=== PATIENT | male | born 1975 | race Caucasian/White ===

== ENCOUNTER 2017-04-15 10:00 | Inpatient (IN) ==
[2017-04-15] MEDS ORDERED: Ipratropium/Albuterol Neb 3 ML IH ONE (10:26)
--- NOTE | 2017-04-15 10:28 | Emergency Department Note ---
Disposition Clinical Impression: Multifocal pneumonia Dyspnea Qualifiers: Dyspnea type: unspecified Qualified Code(s): R06.00 - Dyspnea, unspecified Disposition: Admitted As Inpatient Condition: Fair Referrals: Elsy Victor MD [Primary Care Provider] - Forms: ED Satisfaction Letter Time of Disposition: 12:08 SOB HPI - General Chief Complaint: ED Shortness of Breath/Dyspnea Stated Complaint: Pneumonia x6 days Time Seen by Provider: 04/15/17 10:14 Source: patient Mode of arrival: ambulatory Limitations: no limitations Nursing Notes Reviewed: Yes Vital Signs Reviewed: Yes - History of Present Illness 42-year-old male who comes in with cough shortness of breath. Patient saw his family practice provider a week ago was diagnosed with pneumonia by chest x-ray started on Augmentin. Next day he was feeling worse went to the ER they switched him to Biaxin. Had a chest x-ray done yesterday that showed that he has not improved at all. Says his shortness of breath is getting worse he has a lot of trouble with exertional shortness of breath. Pt Subjective Complaint: shortness of breath, cough Onset (ago): day(s) Context: recent illness (7 pneumonia) Severity: moderate Consistency/Duration: constant Improves with: nothing Worsens with: exertion Known history of: other (Pneumonia) Associated symptoms: Reports: chest pain, fever, cough, wheezing Treatment prior to arrival: other (2 different antibiotics) Cough Description: Involuntary Cough Frequency: Intermittent - Related Data Home Medications Medication Instructions Recorded Confirmed Albuterol Sulfate [Albuterol 2 puff IH Q4-6H PRN 04/15/17 04/15/17 Inhaler] Amoxicillin/Clavulanate [Augmentin] 1 tab PO Q12H 04/15/17 04/15/17 Omeprazole [PriLOSEC] 20 mg PO DAILY 04/15/17 04/15/17 Sertraline [Zoloft] 50 mg PO DAILY 04/15/17 04/15/17 Sucralfate [Carafate] 1 g PO QID 04/15/17 04/15/17 Allergies Allergy/AdvReac Type Severity Reaction Status Date / Time No Known Allergies Allergy Verified 08/09/15 11:15 All systems ED: reviewed and negative except as stated. Constitutional: Denies: fever, chills, weakness, weight change Eyes: Denies: eye pain, eye discharge, vision change ENT ED: Denies: ear pain, throat pain, dental pain, hearing loss, epistaxis, congestion, dysphagia Cardiovascular: Denies: chest pain, palpitations, dyspnea on exertion, edema, syncope Respiratory: Reports: cough, dyspnea, wheezes. Denies: hemoptysis, stridor Gastrointestinal: Denies: abdominal pain, nausea, vomiting, diarrhea, constipation, hematemesis, melena, hematochezia Genitourinary: Denies: urgency, dysuria, frequency, hematuria Musculoskeletal: Denies: back pain, neck pain, arthralgia, myalgia Integumentary: Denies: rash, abrasion, lesions Neurological: Denies: headache, weakness, numbness, paresthesias, confusion, abnormal gait, vertigo Psychiatric: Denies: anxiety, depression, suicidal thoughts, homicidal thoughts , auditory hallucinations, visual hallucinations Endocrine: Denies: fatigue Hematological/Lymphatic: Denies: easy bleeding, easy bruising Allergic/Immunologic: Denies: facial swelling, urticaria Past Medical History - Past Medical History Medical history: Reports: GERD Surgical history: Reports: no surgical history Psychiatric history: Reports: no psych history - Social History Smoking Status: Never smoker Smokeless Tobacco Status: No Alcohol use: Reports: occasionally Drug use: Reports: none Physical Exam - General Limitations: no limitations General appearance: alert - Head Head exam: atraumatic, normocephalic, normal inspection - Eye Eye exam: Present: normal appearance, PERRL, EOMI - ENT ENT exam: normal exam, normal oropharynx, mucous membranes moist - Neck Neck exam: Present: normal inspection - Chest Chest inspection: Present: normal inspection, symmetric chest wall rise - Respiratory Respiratory exam: Present: wheezes, accessory muscle use, prolonged expiratory phase - Cardiovascular Cardiovascular exam: Present: regular rate, normal rhythm, normal heart sounds - Abdominal Exam Abdominal exam: Present: soft, Non-Tender. Absent: tenderness, distention, guarding, rebound, rigidity - Extremities Exam Extremities exam: Present: normal inspection, full ROM. Absent: tenderness, pedal edema - Expanded Lower Extremity Exam Neurovascular/Tendon exam: Absent: motor deficit, sensory deficit, tendon deficit Gait: observed and normal - Back Exam Back exam: Present: normal inspection, full ROM. Absent: tenderness - Neurological Exam Neurological exam: Present: alert, oriented X3 - Psychiatric Psychiatric exam: Present: normal affect, normal mood - Skin Skin exam: Present: warm, dry, intact, normal color Course - Reevaluation(s) Reevaluation #1: 42-year-old male who was diagnosed with pneumonia by chest x-ray about a week ago. Initially was placed on Augmentin and then switched to Biaxin without improvement. His symptoms seem to be getting worse. He has extreme exertional dyspnea. Patient will be admitted for IV antibiotics. Time: 12:09 - Consultations Consultation #1: Discussed with , admit. Time: 12:17 Vital Signs Temperature 99.1 F 04/15/17 10:00 Pulse Rate 96 04/15/17 10:00 Respiratory Rate 18 04/15/17 10:00 Blood Pressure 137/92 04/15/17 10:00 O2 Sat by Pulse Oximetry 96 04/15/17 10:00 Temperature 98.7 F 04/15/17 11:56 Pulse Rate 67 04/15/17 11:56 Respiratory Rate 18 04/15/17 11:56 Blood Pressure 131/83 04/15/17 11:56 O2 Sat by Pulse Oximetry 97 04/15/17 11:56 Oxygen Delivery Oxygen Delivery Room Air Shortness of Breath/Dyspnea - Lab Data Lab results reviewed: Yes I reviewed the patient's lab results. Result diagrams: 04/15/17 10:30 04/15/17 10:30 Lab Results 04/15/17 04/15/17 04/15/17 Range/Units 10:30 10:30 10:30 WBC 10.3 (4.3-11.1) K/mcL RBC 5.20 (4.19-5.50) M/mcL Hgb 15.6 (12.9-16.9) g/dL Hct 47.0 (37.5-50.1) % MCV 90.4 (83.0-100.0) fL MCH 30.0 (28.0-33.3) pg MCHC 33.2 (31.6-35.5) g/dL RDW 12.8 (11.5-14.5) % Plt Count 317 (140-400) K/mcL MPV 9.3 L (9.4-12.4) fL Immature Gran % 1.4 (0-4) % Seg Neutrophils % 50.1 % Lymphocytes % 39.8 % Monocytes % 6.2 % Eosinophils % 1.8 % Basophils % 0.7 % Neutrophils # 5.2 (1.6-8.9) K/mcL Lymphocytes # 4.1 (0.6-4.6) K/mcL Monocytes # 0.6 (0.0-1.3) K/mcL Eosinophils # 0.2 (0.0-0.6) K/mcL Basophils # 0.1 (0.0-0.2) K/mcL Sodium 139 (136-145) mEq/L Potassium 4.0 (3.5-5.1) mEq/L Chloride 106 (98-107) mEq/L Carbon Dioxide 26 (23-29) mEq/L BUN 17 (6-20) mg/dL Creatinine 1.00 (0.70-1.30) mg/dL Est GFR ( Amer) > 60 (> 60) Est GFR (Non-Af Amer) > 60 (> 60) BUN/Creatinine Ratio 17 (6-26) Glucose 92 (70-105) mg/dL Calculated Osmolality 289 (280-300) Lactic Acid 1.0 (0.5-2.2) mmol/L Calcium 9.7 (8.6-10.3) mg/dL Troponin I (< 0.04) ng/mL B-Natriuretic Peptide (Less than 100) pg/mL 04/15/17 04/15/17 Range/Units 10:30 10:30 WBC (4.3-11.1) K/mcL RBC (4.19-5.50) M/mcL Hgb (12.9-16.9) g/dL Hct (37.5-50.1) % MCV (83.0-100.0) fL MCH (28.0-33.3) pg MCHC (31.6-35.5) g/dL RDW (11.5-14.5) % Plt Count (140-400) K/mcL MPV (9.4-12.4) fL Immature Gran % (0-4) % Seg Neutrophils % % Lymphocytes % % Monocytes % % Eosinophils % % Basophils % % Neutrophils # (1.6-8.9) K/mcL Lymphocytes # (0.6-4.6) K/mcL Monocytes # (0.0-1.3) K/mcL Eosinophils # (0.0-0.6) K/mcL Basophils # (0.0-0.2) K/mcL Sodium (136-145) mEq/L Potassium (3.5-5.1) mEq/L Chloride (98-107) mEq/L Carbon Dioxide (23-29) mEq/L BUN (6-20) mg/dL Creatinine (0.70-1.30) mg/dL Est GFR ( Amer) (> 60) Est GFR (Non-Af Amer) (> 60) BUN/Creatinine Ratio (6-26) Glucose (70-105) mg/dL Calculated Osmolality (280-300) Lactic Acid (0.5-2.2) mmol/L Calcium (8.6-10.3) mg/dL Troponin I < 0.03 (< 0.04) ng/mL B-Natriuretic Peptide 10 (Less than 100) pg/mL - Radiology Data Radiology results reviewed: Yes I reviewed the patient's radiology results. Chest X-Ray 04/15/17 10:06 IMPRESSION: Findings concerning for multifocal pneumonia involving left lower lobe and lingula of left upper lobe along with small left pleural effusion. Continued follow-up recommended. D/ / 04/15/2017 10:28:02 Titus Feliciano MD / mendy Interpreting Provider: Titus Feliciano MD - EKG Data EKG attestation: Yes I reviewed and interpreted this EKG. EKG shows normal: Reports: sinus rhythm Rate: Reports: normal Rhythm: Reports: NSR QRS morphology: Reports: poor R-wave progression Interpretation: Reports: no acute changes
[2017-04-15 11:02] LABS: BUN/Creatinine Ratio 17 (6-26); Basophils # 0.1 K/mcL (0.0-0.2); Basophils % 0.7 %; Blood Urea Nitrogen 17 mg/dL (6-20); Calcium 9.7 mg/dL (8.6-10.3); Carbon Dioxide 26 mEq/L (23-29); Chloride 106 mEq/L (98-107); Eosinophils # 0.2 K/mcL (0.0-0.6); Eosinophils % 1.8 %; Glucose 92 mg/dL (70-105); Hemoglobin 15.6 g/dL (12.9-16.9); Immature Granulocytes % 1.4 % (0-4); Lymphocytes # 4.1 K/mcL (0.6-4.6); Lymphocytes % 39.8 %; Mean Corpuscular HGB Conc 33.2 g/dL (31.6-35.5); Mean Corpuscular Volume 90.4 fL (83.0-100.0); Mean Platelet Volume 9.3 fL (9.4-12.4); Monocytes # 0.6 K/mcL (0.0-1.3); Monocytes % 6.2 %; Neutrophils # 5.2 K/mcL (1.6-8.9); Osmolality,Calculated 289 (280-300); Platelet Count 317 K/mcL (140-400); Red Cell Distribution Width 12.8 % (11.5-14.5); Segmented Neutrophils % 50.1 %; Sodium 139 mEq/L (136-145); eGFR For Non-African Americans > 60 (> 60)
[2017-04-15] MEDS ORDERED: Azithromycin 500 MG in D5% in Water 250 ML IVPB ONE (12:08)
[2017-04-15] MEDS ORDERED: cefTRIAXone 1,000 MG in Water for inj. (sterile) 20 ML 10 ML IVP ONE (12:08)
[2017-04-15] MEDS ORDERED: Naloxone 0.4 MG/ML INJ IVP PRN (12:59)
[2017-04-15] MEDS ORDERED: Acetaminophen 325 MG TABLET PO PRN (12:59)
--- NOTE | 2017-04-15 13:29 | Internal Med History&Physical ---
<Meng Baez - Last Filed: 04/15/17 16:39> Date of Encounter: 04/15/17 Time of Encounter: 12:30 Assessment and Plan (1) Multifocal pneumonia Current visit: Yes Status: Acute Acute CAP presenting as multi-focal pneumonia. 2-View CXR findings today are concerning for multifocal pneumonia involving left lower lobe and lingula of left upper lobe along with small left pleural effusion. Pt. denies recent hospitalization or sick contacts. Pt. diagnosed one week ago @ Urgent Care w/ pneumonia and placed on PO Augmentin. Pt. returned the next day after feeling worse and placed on PO Biaxin. Finished Biaxin and continues to feel worse. IVPB azithromycin and ceftriaxone administered in ED. We will continue IVPB azithromycin 500 mg daily and increase IVPB ceftriaxone to 2000 mg daily for infection coverage. Blood cultures 2 and sputum culture ordered. Legionella and strep pneumoniae antigens ordered. Will adjust abx coverage based on culture results. Supplemental O2 with titration to SPO2 monitoring when necessary. Xopenex 1.25 every 6 scheduled. Chest compression therapy ordered. Pt. discussed w/Dr. Ortiz who agrees w/plan of care. Patient is high risk for increasing infection and further morbidity based on failed OP abx therapy x2, current worsening sx, and imaging that shows no improvement. Inpatient. (2) Dyspnea Current visit: Yes Status: Acute Acute SOB and dyspnea, worse w/exertion. Pt. denies cough/sputum production currently but reports chest tightness/congestion. Supplemental O2 w/titration and SpO2 monitoring PRN. Xopenex 1.25 Q6 scheduled. Chest percussion therapy ordered Qshift. Sputum culture ordered for post-CPT when secretions are loosened. Qualifiers: Dyspnea type: dyspnea on exertion Qualified Code(s): R06.09 - Other forms of dyspnea (3) GERD (gastroesophageal reflux disease) Current visit: Yes Status: Chronic Hx of chronic GERD w/dx of Manrique's esophagus. Continue pts. Prilosec. IVP Phenergan 12.5 mg Q6 for nausea. Qualifiers: Esophagitis presence: with esophagitis Qualified Code(s): K21.0 - Gastro- esophageal reflux disease with esophagitis (4) DVT prophylaxis Current visit: Yes Status: Acute Lovenox 40 mg SQ 0600 for DVT prophylaxis. Monitor pt. for signs of bleeding. Internal Medicine - H&P: HPI Chief complaint: SOB/Dyspnea Admitted From: Emergency Dept Plans for Post Hospital Care: Home History of present illness: Mr. Orta is a 42 year old male w/PMH of GERD and Manrique's esophagus presents from the ED with chief complaint of shortness of breath and dyspnea for the past 6 days. Patient states he went to urgent care approximately one week ago while not feeling well and was diagnosed with pneumonia. Patient states he was placed on Augmentin by mouth. The next day patient was feeling worse and went back and was placed on by mouth Biaxin. Patient states he finished Biaxin therapy but continued to feel worse. CXR shows no improvement. Pt. reports SOB worse w/exertion. Patient reports shortness of breath, dyspnea, chest tightness , and fever but denies chills, nausea, vomiting, headache, changes in vision, chest pain, palpitations, cough, abdominal pain, unusual bleeding, diarrhea, constipation, dizziness, lightheadedness, pre-syncope, or syncope. Past Med Surg Social Fam HX - Past Medical History Source: patient, old records reviewed, obtained from family Medical history: GERD, other (Manrique's esophagus) Psychiatric history: no psych history - Past Surgical History Surgical History: no surgical history, orthopedic, other (Right knee), other ( Tonsillectomy) - Social History Smoking Status: Former smoker Packs per day: 1 PPD - Reports quitting 20 years ago Smokeless Tobacco Status: No Alcohol use: occasionally Drug use: none Current living situation: Home, With Family Activity Level: Independent ambulation, Very active Recent Out of Country Travel Within the Last 8 Weeks: No Exposure or Possible Exposure to Illness During Travel: No - Family History Father Race: Family Member Ethnicity: Non- Living Status: Still Living Hx Family Cardiac Disorders: Yes (HLD) Hx Family Musculoskeletal Disorders: Yes (Arthritis) Mother Race: Family Member Ethnicity: Non- Living Status: Still Living Hx Family Medical Disorders: No Sister Race: Family Member Ethnicity: Non- Living Status: Still Living Hx Family Medical Disorders: No Internal Medicine - H&P: Meds Albuterol Sulfate [Albuterol Inhaler] 2 puff IH Q4-6H PRN 04/15/17 [History] Omeprazole [PriLOSEC] 20 mg PO DAILY 04/15/17 [History] Sertraline [Zoloft] 50 mg PO DAILY 04/15/17 [History] 3 Allergy/AdvReac Type Severity Reaction Status Date / Time No Known Allergies Allergy Verified 04/15/17 12:29 All Systems PM: A 10-system review of systems was performed and is negative for pertinent findings except as documented above in the HPI. - Constitutional Constitutional: as per HPI, fever(s), no chills, no night sweats - EENT Eyes: no change in vision, no discharge, no pain, no photophobia Ears: no ear discharge, no ear pain, no tinnitus Nose, mouth and throat: no dysphagia, no nasal discharge, no neck pain, no sore throat - Breasts Breasts: as per HPI - Cardiovascular Cardiovascular ROS IM: as per HPI, dyspnea, dyspnea on exertion, no chest pain, no diaphoresis, no lightheadedness, no palpitations, no syncope - Respiratory Respiratory: as per HPI, dyspnea, dyspnea on exertion, chest congestion, no cough, no wheezing, no excessive phlegm production - Gastrointestinal Gastrointestinal: no abdominal pain, no diarrhea, no hematemesis, no hematochezia, no melena, no nausea, no vomiting - Genitourinary Genitourinary ROS male: as per HPI - Musculoskeletal Musculoskeletal ROS IM: no numbness, no tingling - Integumentary Integumentary IM: no rash, no unusual bruising - Neurological Neurological ROS: no confusion, no convulsions, no focal weakness, no numbness, no tingling, no tremor(s) - Psychiatric Psychiatric: as per HPI - Endocrine Endocrine IM: as per HPI - Hematologic/Lymphatic Hematologic/Lymphatic: no easy bruising - Allergic/Immunologic Allergic/Immunologic: as per HPI - Constitutional Vitals: Temp Pulse Resp BP Pulse Ox 98.7 F 87 16 137/80 96 04/15/17 11:56 04/15/17 13:16 04/15/17 13:16 04/15/17 13:16 04/15/17 13:16 General appearance: Present: cooperative, mild distress (Chest tightness), A&O X 3, pleasant, obese, answers questions appropriately - Head Head exam: Present: atraumatic, normocephalic - Eye Eye exam: Present: PERRL, conjuntiva pink, sclera anicteric Pupils: Present: PERRL - ENT ENT exam: Present: normal exam - Neck Neck exam general surgery: Present: supple, trachea midline. Absent: lymphadenopathy - Respiratory Respiratory exam: Present: decreased breath sounds - Cardiovascular Cardiovascular exam: Present: RRR, +S1, +S2. Absent: diastolic murmur, gallop, rubs, systolic murmur - GI/Abdominal GI/Abdominal exam: Present: normal bowel sounds, soft, no peritoneal signs. Absent: distended, tenderness - Rectal Rectal exam: Present: deferred - Additional comments: exam deferred. - Extremities Exam Extremities exam: Present: warm, radial pulses palpable and symmetrical. Absent : calf tenderness, cyanotic, pedal edema - Back Exam Back exam: Present: normal inspection - Neurological Exam Neurological exam: Present: CN II-XII intact, oriented X3, no focal deficits. Absent: pronater drift, facial droop, speech deficit - Psychiatric Psychiatric exam: Present: normal affect, normal mood Internal Med - H&P Results - Labs CBC & Chem 7: 04/15/17 10:30 04/15/17 10:30 Labs: Short CBC 04/15/17 Range/Units 10:30 WBC 10.3 (4.3-11.1) K/mcL Hgb 15.6 (12.9-16.9) g/dL Hct 47.0 (37.5-50.1) % Plt Count 317 (140-400) K/mcL Neutrophils # 5.2 (1.6-8.9) K/mcL BMP 04/15/17 10:30 Sodium 139 Potassium 4.0 Chloride 106 Carbon Dioxide 26 BUN 17 Creatinine 1.00 Glucose 92 Calcium 9.7 Cardiac Enzymes 04/15/17 Range/Units 10:30 Troponin I < 0.03 (< 0.04) ng/mL - EKG Data EKG shows normal: sinus rhythm - EKG Data Prior EKG available for review: no Interpretation IM: suggestive of ischemia EKG comments: 04/15/17 13:35 EKG dated 04/15/17 shows sinus rhythm with possible anterior myocardial infarction of indeterminate age. - Impressions ITS Impressions Chest X-Ray 04/15/17 10:06 IMPRESSION: Findings concerning for multifocal pneumonia involving left lower lobe and lingula of left upper lobe along with small left pleural effusion. Continued follow-up recommended. D/ / 04/15/2017 10:28:02 Titus Feliciano MD / mendy Interpreting Provider: Titus Feliciano MD - Diagnostic Studies Chest x-ray Additional comments: Impressions Chest X-Ray 04/15/17 10:06 IMPRESSION: Findings concerning for multifocal pneumonia involving left lower lobe and lingula of left upper lobe along with small left pleural effusion. Continued follow-up recommended. D/ / 04/15/2017 10:28:02 Titus Feliciano MD / mendy Interpreting Provider: Titus Feliciano MD <[email or web address] - Last Filed: 04/16/17 07:18> Date of Encounter: 04/16/17 Internal Medicine - H&P: HPI History of present illness: Mr. Orta is a 42 year old male All Systems PM: A 10-system review of systems was performed and is negative for pertinent findings except as documented above in the HPI. - Constitutional Vitals: Temp Pulse Resp BP Pulse Ox 98.1 F 82 15 126/82 96 04/16/17 07:00 04/16/17 07:00 04/16/17 07:00 04/16/17 07:00 04/16/17 07:00 Internal Med - H&P Results - Labs CBC & Chem 7: 04/16/17 06:27 04/15/17 10:30 Labs: Short CBC 04/16/17 Range/Units 06:27 WBC 10.7 (4.3-11.1) K/mcL Hgb 14.7 (12.9-16.9) g/dL Hct 44.6 (37.5-50.1) % Plt Count 271 (140-400) K/mcL Neutrophils # 5.3 (1.6-8.9) K/mcL - Attending Attestation I examined this patient and my medical decision-making was reviewed with the Resident Physician. I agree with the documented findings, disposition and treatment plan as described except to the extent set forth below.
[2017-04-15] MEDS ORDERED: *HR* Promethazine 25 MG/ML VIAL IVP PRN (13:38)
[2017-04-15] MEDS: Levalbuterol Neb 1.25 MG/3 ML IH SCH ×2 (15:23→21:13)
[2017-04-16] MEDS: cefTRIAXone 1,000 MG in Water for inj. (sterile) 20 ML 10 ML IVP SCH ×2 (01:24→13:44)
[2017-04-16] MEDS: Levalbuterol Neb 1.25 MG/3 ML IH SCH ×4 (03:47→22:26)
[2017-04-16] MEDS: *HR* Enoxaparin 40 MG/0.4 ML SYRINGE SQ SCH (06:21)
[2017-04-16 06:58] LABS: Basophils # 0.1 K/mcL (0.0-0.2); Basophils % 0.6 %; Eosinophils # 0.2 K/mcL (0.0-0.6); Eosinophils % 1.5 %; Hematocrit 44.6 % (37.5-50.1); Hemoglobin 14.7 g/dL (12.9-16.9); Immature Granulocytes % 1.4 % (0-4); Lymphocytes # 4.3 K/mcL (0.6-4.6); Lymphocytes % 40.3 %; Mean Corpuscular Hemoglobin 30.2 pg (28.0-33.3); Mean Corpuscular Volume 91.8 fL (83.0-100.0); Mean Platelet Volume 9.2 fL (9.4-12.4); Monocytes # 0.7 K/mcL (0.0-1.3); Monocytes % 6.9 %; Neutrophils # 5.3 K/mcL (1.6-8.9); Platelet Count 271 K/mcL (140-400); Red Blood Count 4.86 M/mcL (4.19-5.50); Segmented Neutrophils % 49.3 %
[2017-04-16 08:48] LABS: Alanine Aminotransferase 21 Units/L (7-52); Albumin 4.1 g/dL (3.5-5.7); Albumin/Globulin Ratio 1.4 (1.1-2.2); Alkaline Phosphatase 57 Units/L (34-104); Aspartate Amino Transferase 17 Units/L (13-39); BUN/Creatinine Ratio 17 (6-26); Bilirubin,Total 0.4 mg/dL (0.3-1.0); Blood Urea Nitrogen 17 mg/dL (6-20); Calcium 9.2 mg/dL (8.6-10.3); Carbon Dioxide 27 mEq/L (23-29); Chloride 106 mEq/L (98-107); Cholesterol 162 mg/dL (< 200); Glucose 101 mg/dL (70-105); HDL Cholesterol 54 mg/dL (40-59); LDL Cholesterol,Calculated 88 mg/dL (0-99); Magnesium 2.1 mg/dL (1.6-2.6); Osmolality,Calculated 294 (280-300); Potassium 3.8 mEq/L (3.5-5.1); Sodium 141 mEq/L (136-145); Total Protein 7.1 g/dL (6.4-8.9); Triglycerides 101 mg/dL (< 150); eGFR For Non-African Americans > 60 (> 60)
--- NOTE | 2017-04-16 11:12 | Internal Med Progress Note ---
Date of Encounter: 04/16/17 Time of Encounter: 16:45 - Assessment and plan (1) Multifocal pneumonia Current Visit: Yes Status: Acute Assessment and plan: Failed outpatient therapy of Augmentin and clarithromycin - Continue Rocephin and Azithromycin - supportive care with Xopenex breathing treatments - patient was getting tachycardic with Duo Nebs. (2) GERD (gastroesophageal reflux disease) Current Visit: Yes Status: Chronic Qualifiers: Esophagitis presence: with esophagitis Qualified Code(s): K21.0 - Gastro- esophageal reflux disease with esophagitis (3) DVT prophylaxis Current Visit: Yes Status: Acute Assessment and plan: Low risk for VTE - Subjective Interval history: States dyspnea is unchanged since admission. Feels hard time getting buildup out. Denies fevers/chills, chest pain, n/v. - Constitutional Vitals: Temp Pulse Resp BP Pulse Ox 98.1 F 82 16 126/82 96 04/16/17 07:00 04/16/17 07:00 04/16/17 10:02 04/16/17 10:02 04/16/17 10:02 General appearance: Present: cooperative, mild distress (Chest tightness), A&O X 3, pleasant, obese, answers questions appropriately - Head Head exam: Present: atraumatic, normocephalic - Eye Eye exam: Present: PERRL, conjuntiva pink, sclera anicteric Pupils: Present: PERRL - Neck Neck exam general surgery: Present: supple, trachea midline. Absent: lymphadenopathy - Respiratory Respiratory exam: Present: CTAB. Absent: accessory muscle use, rales, rhonchi, wheezes - Cardiovascular Cardiovascular exam: Present: RRR, +S1, +S2. Absent: diastolic murmur, gallop, rubs, systolic murmur - GI/Abdominal GI/Abdominal exam: Present: normal bowel sounds, soft, no peritoneal signs. Absent: distended, tenderness - Extremities Exam Extremities exam: Present: warm, radial pulses palpable and symmetrical. Absent : calf tenderness, cyanotic, pedal edema - Neurological Exam Neurological exam: Present: CN II-XII intact, oriented X3, no focal deficits. Absent: pronater drift, facial droop, speech deficit - Skin Skin exam: Present: dry, intact Internal Medicine: Result - Labs CBC & Chem 7: 04/16/17 06:27 04/16/17 06:27 Labs: Short CBC 04/16/17 Range/Units 06:27 WBC 10.7 (4.3-11.1) K/mcL Hgb 14.7 (12.9-16.9) g/dL Hct 44.6 (37.5-50.1) % Plt Count 271 (140-400) K/mcL Neutrophils # 5.3 (1.6-8.9) K/mcL BMP 04/16/17 06:27 Sodium 141 Potassium 3.8 Chloride 106 Carbon Dioxide 27 BUN 17 Creatinine 0.99 Glucose 101 Calcium 9.2 Liver Function 04/16/17 Range/Units 06:27 Total Bilirubin 0.4 (0.3-1.0) mg/dL AST 17 (13-39) Units/L ALT 21 (7-52) Units/L Alkaline Phosphatase 57 (34-104) Units/L Albumin 4.1 (3.5-5.7) g/dL Consult Discharge Plan - Plan Referrals: Elsy Victor MD [Primary Care Provider] -
[2017-04-16] MEDS: Azithromycin 500 MG in D5% in Water 250 ML IVPB SCH (13:44)
--- NOTE | 2017-04-16 18:36 | Electrocardiograph Report ---
[place] [facility] Test Date: 2017-04-15 Pat Name: Pavel Orta Department: 104 Room: 2NE24 Gender: M [employer]: VL : [id number] Requested By: Khai Sanz Order Number: [id number] Reading MD: Sanjuana Cobos DO Measurements Intervals [place] Rate: 86 P: 34 FL: 147 QRS: 13 QRSD: 90 T: 1 QT: 318 QTc: 362 Interpretive Statements SINUS RHYTHM POSSIBLE ANTERIOR MYOCARDIAL INFARCTION, OF INDETERMINATE AGE POOR R WAVE PROGRESSION Electronically Signed On 04-16-2017 18:34:30 EST by Sanjuana Cobos DO
[2017-04-16] MEDS: cefTRIAXone 2,000 MG in Water for inj. (sterile) 20 ML 20 ML IVP SCH (21:23)
[2017-04-17] MEDS: Levalbuterol Neb 1.25 MG/3 ML IH SCH ×4 (03:58→21:09)
[2017-04-17 05:22] LABS: Basophils # 0.1 K/mcL (0.0-0.2); Basophils % 0.6 %; Eosinophils # 0.2 K/mcL (0.0-0.6); Eosinophils % 1.9 %; Hematocrit 43.8 % (37.5-50.1); Hemoglobin 14.3 g/dL (12.9-16.9); Immature Granulocytes % 1.3 % (0-4); Lymphocytes # 4.1 K/mcL (0.6-4.6); Lymphocytes % 39.6 %; Mean Corpuscular HGB Conc 32.6 g/dL (31.6-35.5); Mean Corpuscular Hemoglobin 29.9 pg (28.0-33.3); Mean Corpuscular Volume 91.6 fL (83.0-100.0); Mean Platelet Volume 9.3 fL (9.4-12.4); Monocytes # 0.7 K/mcL (0.0-1.3); Monocytes % 6.8 %; Neutrophils # 5.1 K/mcL (1.6-8.9); Platelet Count 261 K/mcL (140-400); Red Blood Count 4.78 M/mcL (4.19-5.50); Red Cell Distribution Width 12.9 % (11.5-14.5); Segmented Neutrophils % 49.8 %
[2017-04-17 05:41] LABS: Alanine Aminotransferase 19 Units/L (7-52); Albumin/Globulin Ratio 1.5 (1.1-2.2); Alkaline Phosphatase 52 Units/L (34-104); Aspartate Amino Transferase 16 Units/L (13-39); BUN/Creatinine Ratio 14 (6-26); Bilirubin,Total 0.5 mg/dL (0.3-1.0); Blood Urea Nitrogen 14 mg/dL (6-20); Calcium 9.1 mg/dL (8.6-10.3); Carbon Dioxide 26 mEq/L (23-29); Chloride 105 mEq/L (98-107); Globulin 2.6 g/dL (2.4-3.5); Glucose 114 mg/dL (70-105); Osmolality,Calculated 289 (280-300); Potassium 3.5 mEq/L (3.5-5.1); Sodium 139 mEq/L (136-145); Total Protein 6.6 g/dL (6.4-8.9); eGFR For Non-African Americans > 60 (> 60)
[2017-04-17] MEDS: *HR* Enoxaparin 40 MG/0.4 ML SYRINGE SQ SCH (05:41)
[2017-04-17] MEDS ORDERED: MethylPREDNISolone 40 MG/ML VIAL IVP STA (11:39)
[2017-04-17] MEDS: Azithromycin 500 MG in D5% in Water 250 ML IVPB SCH (13:57)
[2017-04-17] MEDS: *HR* Acetylcysteine 20% 600 MG/3 ML ORAL SYRINGE PO SCH ×2 (13:58→21:47)
[2017-04-17] MEDS ORDERED: 0.9 % Sodium Chloride 500 ML ONE (14:58)
--- NOTE | 2017-04-17 15:00 | Internal Med Progress Note ---
Date of Encounter: 04/17/17 Time of Encounter: 14:58 - Assessment and plan (1) Multifocal pneumonia Current Visit: Yes Status: Acute Assessment and plan: Failed outpatient therapy of Augmentin and clarithromycin - Continue Rocephin and Azithromycin - Saline nebs and Xopenex breathing treatments - patient was getting tachycardic with Duo Nebs. - Mucinex - Trial of Solu Medrol, no wheezing on exam but patient having respiratory difficulty - acetylcysteine PO He is otherwise healthy male with no known pulmonary disease but failing to improve. We may consider a CT chest if no improvement. (2) GERD (gastroesophageal reflux disease) Current Visit: Yes Status: Chronic Qualifiers: Esophagitis presence: with esophagitis Qualified Code(s): K21.0 - Gastro- esophageal reflux disease with esophagitis (3) DVT prophylaxis Current Visit: Yes Status: Acute Assessment and plan: Low risk for VTE - Subjective Interval history: States dyspnea is unchanged since admission. Denies fevers/chills, chest pain, n/v.. He is still feeling short of breath. - Constitutional Vitals: Temp Pulse Resp BP Pulse Ox 97.7 F 73 16 112/68 98 04/17/17 07:13 04/17/17 07:13 04/17/17 10:58 04/17/17 07:13 04/17/17 10:58 General appearance: Present: cooperative, mild distress (Chest tightness), A&O X 3, pleasant, obese, answers questions appropriately - Head Head exam: Present: atraumatic, normocephalic - Eye Eye exam: Present: PERRL, conjuntiva pink, sclera anicteric Pupils: Present: PERRL - Neck Neck exam general surgery: Present: supple, trachea midline. Absent: lymphadenopathy - Respiratory Respiratory exam: Present: CTAB. Absent: accessory muscle use, rales, rhonchi, wheezes - Cardiovascular Cardiovascular exam: Present: RRR, +S1, +S2. Absent: diastolic murmur, gallop, rubs, systolic murmur - GI/Abdominal GI/Abdominal exam: Present: normal bowel sounds, soft, no peritoneal signs. Absent: distended, tenderness - Extremities Exam Extremities exam: Present: warm, radial pulses palpable and symmetrical. Absent : calf tenderness, cyanotic, pedal edema - Neurological Exam Neurological exam: Present: CN II-XII intact, oriented X3, no focal deficits. Absent: pronater drift, facial droop, speech deficit - Skin Skin exam: Present: dry, intact Internal Medicine: Result - Labs CBC & Chem 7: 04/17/17 04:47 04/17/17 04:47 Labs: Short CBC 04/17/17 Range/Units 04:47 WBC 10.2 (4.3-11.1) K/mcL Hgb 14.3 (12.9-16.9) g/dL Hct 43.8 (37.5-50.1) % Plt Count 261 (140-400) K/mcL Neutrophils # 5.1 (1.6-8.9) K/mcL BMP 04/17/17 04:47 Sodium 139 Potassium 3.5 Chloride 105 Carbon Dioxide 26 BUN 14 Creatinine 0.98 Glucose 114 H Calcium 9.1 Liver Function 04/17/17 Range/Units 04:47 Total Bilirubin 0.5 (0.3-1.0) mg/dL AST 16 (13-39) Units/L ALT 19 (7-52) Units/L Alkaline Phosphatase 52 (34-104) Units/L Albumin 4.0 (3.5-5.7) g/dL Consult Discharge Plan - Plan Referrals: Elsy Victor MD [Primary Care Provider] -
[2017-04-17] MEDS: Sodium Chloride for inhalation 3 ML VIAL IH SCH ×3 (15:45→23:39)
[2017-04-17] MEDS ORDERED: 0.9 % Sodium Chloride 1,000 ML IVC STA (18:25)
[2017-04-17] MEDS ORDERED: *HR* LORazepam 2 MG/ML VIAL IVP ONE (18:26)
[2017-04-17] MEDS: cefTRIAXone 2,000 MG in Water for inj. (sterile) 20 ML 20 ML IVP SCH (21:47)
[2017-04-18] MEDS: Levalbuterol Neb 1.25 MG/3 ML IH SCH ×4 (03:33→21:33)
[2017-04-18] MEDS: Sodium Chloride for inhalation 3 ML VIAL IH SCH ×6 (03:33→23:44)
[2017-04-18 06:01] LABS: Basophils % 0.2 %; Eosinophils % 0.1 %; Hematocrit 42.2 % (37.5-50.1); Hemoglobin 13.9 g/dL (12.9-16.9); Immature Granulocytes % 0.6 % (0-4); Lymphocytes % 12.5 %; Mean Corpuscular HGB Conc 32.9 g/dL (31.6-35.5); Mean Corpuscular Volume 91.1 fL (83.0-100.0); Mean Platelet Volume 9.3 fL (9.4-12.4); Platelet Count 284 K/mcL (140-400); Red Blood Count 4.63 M/mcL (4.19-5.50); Segmented Neutrophils % 80.6 %
[2017-04-18] MEDS: *HR* Enoxaparin 40 MG/0.4 ML SYRINGE SQ SCH (06:01)
[2017-04-18 06:16] LABS: Alanine Aminotransferase 20 Units/L (7-52); Albumin/Globulin Ratio 1.5 (1.1-2.2); Alkaline Phosphatase 53 Units/L (34-104); Aspartate Amino Transferase 15 Units/L (13-39); BUN/Creatinine Ratio 14 (6-26); Bilirubin,Total 0.4 mg/dL (0.3-1.0); Blood Urea Nitrogen 11 mg/dL (6-20); Carbon Dioxide 24 mEq/L (23-29); Chloride 107 mEq/L (98-107); Globulin 2.7 g/dL (2.4-3.5); Glucose 122 mg/dL (70-105); Osmolality,Calculated 289 (280-300); Potassium 3.7 mEq/L (3.5-5.1); Sodium 139 mEq/L (136-145); Total Protein 6.7 g/dL (6.4-8.9); eGFR For Non-African Americans > 60 (> 60)
[2017-04-18] MEDS: Azithromycin 500 MG in D5% in Water 250 ML IVPB SCH (14:08)
--- NOTE | 2017-04-18 16:11 | Internal Med Progress Note ---
Date of Encounter: 04/18/17 Time of Encounter: 16:08 - Assessment and plan (1) Multifocal pneumonia Current Visit: Yes Status: Acute Assessment and plan: Failed outpatient therapy of Augmentin and clarithromycin - CTA chest negative for PE or obstruction - Continue Rocephin - Azithromycin therapy completed. - Saline nebs and Xopenex breathing treatments - patient was getting tachycardic with Duo Nebs. - Mucinex - Trial of Solu Medrol did not improve symptoms - Leukocytosis likely from Solu Medrol - Vancomcyin to cover for MRSA and on discharge, change to Doxy Discharge tomorrow morning. (2) GERD (gastroesophageal reflux disease) Current Visit: Yes Status: Chronic Qualifiers: Esophagitis presence: with esophagitis Qualified Code(s): K21.0 - Gastro- esophageal reflux disease with esophagitis (3) DVT prophylaxis Current Visit: Yes Status: Acute Assessment and plan: Low risk for VTE - Subjective Interval history: Dyspnea slightly better. Yesterday he was fatigued after little ambulation. Today he is able to ambulate a little more. He was finally able to cough up some sputum large thick sputum which he has not been able to do for several weeks. - Constitutional Vitals: Temp Pulse Resp BP Pulse Ox 97.6 F 93 16 135/89 97 04/18/17 11:00 04/18/17 11:00 04/18/17 11:40 04/18/17 11:40 04/18/17 11:40 General appearance: Present: cooperative, mild distress (Chest tightness), A&O X 3, pleasant, obese, answers questions appropriately - Head Head exam: Present: atraumatic, normocephalic - Eye Eye exam: Present: PERRL, conjuntiva pink, sclera anicteric Pupils: Present: PERRL - Neck Neck exam general surgery: Present: supple, trachea midline. Absent: lymphadenopathy - Respiratory Respiratory exam: Present: CTAB. Absent: accessory muscle use, rales, rhonchi, wheezes - Cardiovascular Cardiovascular exam: Present: RRR, +S1, +S2. Absent: diastolic murmur, gallop, rubs, systolic murmur - GI/Abdominal GI/Abdominal exam: Present: normal bowel sounds, soft, no peritoneal signs. Absent: distended, tenderness - Extremities Exam Extremities exam: Present: warm, radial pulses palpable and symmetrical. Absent : calf tenderness, cyanotic, pedal edema - Neurological Exam Neurological exam: Present: CN II-XII intact, oriented X3, no focal deficits. Absent: pronater drift, facial droop, speech deficit - Skin Skin exam: Present: dry, intact Internal Medicine: Result - Labs CBC & Chem 7: 04/18/17 05:19 04/18/17 05:19 Labs: Short CBC 04/18/17 Range/Units 05:19 WBC 16.1 H D (4.3-11.1) K/mcL Hgb 13.9 (12.9-16.9) g/dL Hct 42.2 (37.5-50.1) % Plt Count 284 (140-400) K/mcL Neutrophils # 13.0 H (1.6-8.9) K/mcL BMP 04/18/17 05:19 Sodium 139 Potassium 3.7 Chloride 107 Carbon Dioxide 24 BUN 11 Creatinine 0.80 Glucose 122 H Calcium 9.0 Liver Function 04/18/17 Range/Units 05:19 Total Bilirubin 0.4 (0.3-1.0) mg/dL AST 15 (13-39) Units/L ALT 20 (7-52) Units/L Alkaline Phosphatase 53 (34-104) Units/L Albumin 4.0 (3.5-5.7) g/dL - Impressions Impressions Chest CTA 04/17/17 15:05 IMPRESSION: 1. Marked respiratory motion degradation. The would not be possible to exclude pulmonary embolism based on this examination. 2. There are some hypodense foci seen superimposed on right lower lobe pulmonary artery, which are most likely respiratory artifact, but pulmonary embolism does remain a consideration. 3. At this point, either a repeat CT PA or nuclear medicine ventilation-perfusion scan would be recommended. 4. No definite acute focal infiltrate. Again, respiratory motion limits evaluation the lung parenchyma as well. 5. There is re- demonstration of rounded atelectasis and scarring within the left lower lobe and to a lesser extent within left upper lobe. D/ / Sergio Alejo MD / Sergio Alejo MD Interpreting Provider: Sergio Alejo MD Chest CTA 04/17/17 20:03 IMPRESSION: No central pulmonary embolus. Right lower lobe posterior basal segmental/ subsegmental pulmonary arteries are not well opacified however no discernible thrombus is seen. This is indeterminate. Some combination of right lower lobe consolidation, pleural thickening, rounded atelectasis about calcified granulomata. This may represent acute on chronic inflammatory change. D/ / Rodo Montalvo MD / Rodo Montalvo MD Interpreting Provider: Rodo Montalvo MD Consult Discharge Plan - Plan Referrals: Elsy Victor MD [Primary Care Provider] -
[2017-04-18] MEDS: cefTRIAXone 2,000 MG in Water for inj. (sterile) 20 ML 20 ML IVP SCH (22:11)
[2017-04-19] MEDS: Sodium Chloride for inhalation 3 ML VIAL IH SCH ×3 (03:38→11:51)
[2017-04-19] MEDS: Levalbuterol Neb 1.25 MG/3 ML IH SCH ×2 (03:38→11:51)
[2017-04-19] MEDS: *HR* Enoxaparin 40 MG/0.4 ML SYRINGE SQ SCH (06:03)
[2017-04-19 06:51] VITALS: BP 125/88
[2017-04-19 07:46] LABS: Basophils # 0.1 K/mcL (0.0-0.2); Basophils % 0.6 %; Eosinophils # 0.1 K/mcL (0.0-0.6); Eosinophils % 1.2 %; Hematocrit 41.9 % (37.5-50.1); Hemoglobin 13.8 g/dL (12.9-16.9); Immature Granulocytes % 0.9 % (0-4); Lymphocytes # 3.4 K/mcL (0.6-4.6); Lymphocytes % 35.4 %; Mean Corpuscular HGB Conc 32.9 g/dL (31.6-35.5); Mean Corpuscular Hemoglobin 30.3 pg (28.0-33.3); Mean Corpuscular Volume 92.1 fL (83.0-100.0); Mean Platelet Volume 9.5 fL (9.4-12.4); Monocytes # 0.7 K/mcL (0.0-1.3); Monocytes % 7.1 %; Neutrophils # 5.3 K/mcL (1.6-8.9); Platelet Count 253 K/mcL (140-400); Red Blood Count 4.55 M/mcL (4.19-5.50); Red Cell Distribution Width 13.3 % (11.5-14.5); Segmented Neutrophils % 54.8 %
[2017-04-19 08:01] LABS: Alanine Aminotransferase 20 Units/L (7-52); Albumin 3.9 g/dL (3.5-5.7); Albumin/Globulin Ratio 1.4 (1.1-2.2); Alkaline Phosphatase 52 Units/L (34-104); Aspartate Amino Transferase 17 Units/L (13-39); BUN/Creatinine Ratio 13 (6-26); Bilirubin,Total 0.5 mg/dL (0.3-1.0); Blood Urea Nitrogen 12 mg/dL (6-20); Carbon Dioxide 27 mEq/L (23-29); Chloride 107 mEq/L (98-107); Globulin 2.7 g/dL (2.4-3.5); Glucose 92 mg/dL (70-105); Osmolality,Calculated 287 (280-300); Potassium 3.8 mEq/L (3.5-5.1); Sodium 139 mEq/L (136-145); Total Protein 6.6 g/dL (6.4-8.9); eGFR For Non-African Americans > 60 (> 60)
--- NOTE | 2017-04-19 14:17 | Discharge Summary ---
Orders not resulted at time of discharge: Pending orders 04/19/17 20:00 Vancomycin,Trough Timed Date of Encounter: 04/19/17 Time of Encounter: 14:05 - Discharge Diagnosis (1) Multifocal pneumonia Priority: Primary Status: Acute (2) GERD (gastroesophageal reflux disease) Priority: Secondary Status: Chronic Qualifiers: Esophagitis presence: esophagitis presence not specified Qualified Code(s) : K21.9 - Gastro-esophageal reflux disease without esophagitis (3) DVT prophylaxis Priority: Secondary Status: Acute Hospital course: Mr. Orta is a 42 year old male w/PMH of GERD and Manrique's esophagus presents from the ED with chief complaint of shortness of breath and dyspnea for the past 6 days. Patient states he went to urgent care approximately one week ago while not feeling well and was diagnosed with pneumonia. Patient states he was placed on Augmentin by mouth. The next day patient was feeling worse and went back and was placed on by mouth Biaxin. Patient states he finished Biaxin therapy but continued to feel worse. CXR shows no improvement. Pt. reports SOB worse w/exertion. He was admitted for community acquired pneumonia with failed outpatient therapy twice. He was started on azithromycin and Rocephin. Patient did not respond much after two days of treatment and still complained of dyspnea. He required pulm percussion therapy and aersol therapy Xopenex. A CTA was done to rule out pulmonary embolism. and was negative. Please see results below. He was discharged home in stable condition to complete 5 days of Omnicef and Doxycycline. - Time Spent with Patient Total time spent providing and/or coordinating discharge services: - Discharge Medications Prescriptions: Cefdinir [Omnicef] 300 mg PO BID #10 capsule Doxycycline 100 mg PO BID #10 capsule Home Medications: Albuterol Sulfate [Albuterol Inhaler] 2 puff IH Q4-6H PRN 04/15/17 [History] Omeprazole [PriLOSEC] 20 mg PO DAILY 04/15/17 [History] Sertraline [Zoloft] 50 mg PO DAILY 04/15/17 [History] Cefdinir [Omnicef] 300 mg PO BID #10 capsule 04/19/17 [Rx] Doxycycline 100 mg PO BID #10 capsule 04/19/17 [Rx] GuaiFENesin ER [Mucinex] 600 mg PO BID PRN tbbp.12hr 04/19/17 [Rx] Allergies/Adverse Reactions: 3 Allergy/AdvReac Type Severity Reaction Status Date / Time No Known Allergies Allergy Verified 04/15/17 12:29 Date of admission: 04/15/17 15:58 Primary care physician: Elsy Langston Discharging clinician: Melvin Nolasco - Constitutional Vitals: Temp Pulse Resp BP Pulse Ox 97.9 F 96 16 125/88 98 04/19/17 06:50 04/19/17 06:50 04/19/17 13:42 04/19/17 13:42 04/19/17 13:42 General appearance: Present: cooperative, mild distress (Chest tightness), A&O X 3, pleasant, obese, answers questions appropriately - Head Head exam: Present: atraumatic, normocephalic - Eye Eye exam: Present: PERRL, conjuntiva pink, sclera anicteric Pupils: Present: PERRL - Neck Neck exam general surgery: Present: supple, trachea midline. Absent: lymphadenopathy - Respiratory Respiratory exam: Present: CTAB. Absent: accessory muscle use, rales, rhonchi, wheezes - Cardiovascular Cardiovascular exam: Present: RRR, +S1, +S2. Absent: diastolic murmur, gallop, rubs, systolic murmur - GI/Abdominal GI/Abdominal exam: Present: normal bowel sounds, soft, no peritoneal signs. Absent: distended, tenderness - Extremities Exam Extremities exam: Present: warm, radial pulses palpable and symmetrical. Absent : calf tenderness, cyanotic, pedal edema - Neurological Exam Neurological exam: Present: CN II-XII intact, oriented X3, no focal deficits. Absent: pronater drift, facial droop, speech deficit - Skin Skin exam: Present: dry, intact - Patient Status Disposition: Home, Self-Care Condition: Fair Functional capacity at discharge: independent ambulation Overall status at discharge: patient is back to baseline - Discharge Instructions Follow Up With: Elsy Victor MD [Primary Care Provider] - - Diet and Activity Activity: increase activity as tolerated, other (Return to work in 3 days) Diet: advance to your usual diet
[2017-04-19] MEDS ORDERED: Aminoglycoside Consult 1 EACH MC ONE (16:44)
== END 2017-04-19 16:45 | disposition home or self-care (01) | DRG 194 ==
LOC: 2NENU 10:00 → EMEROO 10:00 → 2NENU 13:24
PROVIDERS: ADMIT Student in an Organized Health Care Education/Training Program; ATTEND Student in an Organized Health Care Education/Training Program